=== PATIENT | male | born 1965 | race Caucasian/White ===

== ENCOUNTER 2024-04-06 14:41 | Emergency (ER) | payer OTHER ==
[~2024-04-06] VITALS: Wt 95.3 kg
[2024-04-06] MEDS ORDERED: PREDNISONE20 M1 PO (15:30)
[2024-04-06] MEDS ORDERED: methylPREDNISolone sod succ 125 MG VIAL IM ONE (15:35)
== END 2024-04-06 15:30 | disposition home or self-care (01) ==
LOC: ED 14:41
DX: L23.7 Allergic contact dermatitis due to plants, except food (principal)

== ENCOUNTER 2024-04-12 08:01 | Emergency (ER) | payer OTHER ==
[~2024-04-12] VITALS: Ht 185.4 cm; Wt 95.3 kg
[~2024-04-12 08:01] MED LIST: PREDNISONE20 M1 PO
[2024-04-12] MEDS ORDERED: PREDNISONE10 M1 PO (10:17)
== END 2024-04-12 10:38 | disposition home or self-care (01) ==
LOC: ED 08:01
DX: L23.7 Allergic contact dermatitis due to plants, except food (principal)